=== PATIENT | female | born 1975 | race Hispanic/Latino ===

== ENCOUNTER 2017-05-26 18:35 | Emergency (ER) | payer OTHER, SELFPAY ==
[2017-05-26 18:36] VITALS: BMI 26.1
[2017-05-26 19:45] VITALS: BP 100/69; PULSE 98; RESP 18; TEMP 98.1; O2SAT 98
--- NOTE | 2017-05-26 20:29 | C.PDOC ---
History Of Present Illness 41 year old female presents to the ED for evaluation of right-sided neck pain which began 3 days ago. Patient reports the pain radiates down her right arm and is worse with movement. Patient states she is right hand dominant. She denies trauma/injuries and extremity numbness/weakness. Time Seen by Provider: 05/26/17 20:11 Chief Complaint (Nursing): Upper Extremity Problem/Injury History Per: Patient History/Exam Limitations: no limitations Onset/Duration Of Symptoms: Days (3) Current Symptoms Are (Timing): Still Present Quality: "Pain" Exacerbating Factor(s): Movement Additional History Per: Patient Past Medical History Reviewed: Historical Data, Nursing Documentation, Vital Signs Vital Signs: Last Vital Signs Temp 98.1 F 05/26/17 19:33 Pulse 98 H 05/26/17 19:33 Resp 18 05/26/17 19:33 BP 100/69 05/26/17 19:33 Pulse Ox 98 05/31/17 22:00 - Medical History PMH: Gall Bladder Disease, HTN, Hypercholesterolemia, Kidney Stones Surgical History: No Surg Hx Family History: States: Diabetes - Social History Hx Tobacco Use: No Hx Alcohol Use: No Hx Substance Use: No - Immunization History Hx Tetanus Toxoid Vaccination: No Hx Influenza Vaccination: No Hx Pneumococcal Vaccination: No Review Of Systems Musculoskeletal: Positive for: Neck Pain (right-sided), Arm Pain (right) Neurological: Negative for: Weakness, Numbness Physical Exam - Physical Exam Appears: Non-toxic, Other (uncomfortable ) Skin: Normal Color, Warm, Dry Head: Atraumatic, Normacephalic Eye(s): bilateral: Normal Inspection Oral Mucosa: Moist Neck: Supple Chest: Symmetrical, No Deformity, No Tenderness Cardiovascular: Rhythm Regular, No Murmur Respiratory: Normal Breath Sounds, No Rales, No Rhonchi, No Wheezing Back: Muscle Spasm (right-sided, trapezius ) Extremity: Normal ROM, No Tenderness, Capillary Refill (less than 2 seconds ), No Deformity, No Swelling Neurological/Psych: Oriented x3, Normal Speech, Normal Cognition, Normal Sensation Gait: Steady ED Course And Treatment O2 Sat by Pulse Oximetry: 98 (on RA) Pulse Ox Interpretation: Normal Progress Note: Cervical Spine XR ordered and reviewed. Flexeril PO and Toradol IM administered. Case discussed with Dr. Romero, who evaluated the patient at bedside. Agrees with plan and discharge. On reassessment, patient is resting comfortably, with improvement of neck pain. Patient remains afebrile, with no bony tenderness, extremity numbness or weakness, or abdominal pain. Patient is ambulatory in the emergency department with no signs of discomfort. Patient was advised to follow up with physician/clinic in 1-2 days. Disposition - Disposition Disposition: HOME/ ROUTINE Disposition Time: 21:39 Condition: STABLE Additional Instructions: Vaya a cope mdico o la clnica en 2-5 p[place]man sin falta, para mas evaluacin. [place] los medicamentos juany indicado. Volver a la tevin de emergencia en cualquier momento si los sntomas persisten o empeoran. 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 - Scribe Statement The provider has reviewed the documentation as recorded by the Scribe (Kitty Dozier) All medical record entries made by the Scribe were at my direction and personally dictated by me. I have reviewed the chart and agree that the record accurately reflects my personal performance of the history, physical exam, medical decision making, and the department course for this patient. I have also personally directed, reviewed, and agree with the discharge instructions and disposition.
--- NOTE | 2017-05-27 10:02 | RAD ---
PROCEDURE: Cervical Spine Radiographs. HISTORY: Pain. COMPARISON: None. FINDINGS: BONES: Cervical lordotic straightening. No fracture. Dens Intact. Tear spondylosis C4 and C5. DISC SPACES: Normal. SOFT TISSUES: Anterior C5-6 S disc margin calcification/ossification OTHER FINDINGS: None. IMPRESSION: No fracture or subluxation. No lytic lesion Cervical spondylosis Cervical lordotic straightening
== END 2017-05-26 22:14 | disposition home or self-care (01) ==
LOC: C.ER 18:35
DX: M54.12 Radiculopathy, cervical region (principal)
CPT/HCPCS: 72052; 96372; 99284; J1885

== ENCOUNTER 2017-12-02 01:09 | Emergency (ER) | payer SELFPAY ==
[2017-12-02 01:10] VITALS: BMI 26.1
[2017-12-02 01:28] VITALS: PULSE 76; TEMP 98
--- NOTE | 2017-12-02 02:02 | C.PDOC ---
History Of Present Illness 42 y/o F p/w R sided neck pain that radiates up R sided head and down R shoulder and arm and with R hand numbness. She also reports chest pain during this same time. Pain has been for the last 2 weeks, patient states she has had it before as well and was instructed to go to physical therapy but she never has because she does not have insurance. Denies fever, chills, dyspnea, nausea, vomiting, trauma. Time Seen by Provider: 12/02/17 01:32 Chief Complaint (Nursing): Chest Pain Past Medical History Vital Signs: Last Vital Signs Temp 98.0 F 12/02/17 01:18 Pulse 76 12/02/17 01:18 Resp 14 12/02/17 01:18 BP 123/61 12/02/17 01:18 Pulse Ox 98 12/02/17 01:18 - Medical History PMH: Gall Bladder Disease, HTN, Hypercholesterolemia, Kidney Stones Family History: States: Diabetes - Social History Hx Tobacco Use: No Hx Alcohol Use: No Hx Substance Use: No - Immunization History Hx Tetanus Toxoid Vaccination: No Hx Influenza Vaccination: No Hx Pneumococcal Vaccination: No Review Of Systems Except As Marked, All Systems Reviewed And Found Negative. Constitutional: Negative for: Fever Respiratory: Negative for: Shortness of Breath Physical Exam - Physical Exam Additional Physical Exam Comments: Constitutional: No acute distress. Head: Normocephalic. Atraumatic. Eyes: PERRL. ENT: Moist mucous membranes. Neck: Supple. No midline tenderness. FROM. Cardiovascular: Regular rate. Radial pulse 2+ bilaterally. Chest: Reproducible tenderness. Respiratory: Clear to auscultation bilaterally. GI: Soft. Nontender. Nondistended. Back: No CVA tenderness. Musculoskeletal: No tenderness or swelling of extremities. FROM of shoulder, elbow, and wrist. Skin: No rash. Neurologic: Alert, no focal deficit. ED Course And Treatment O2 Sat by Pulse Oximetry: 98 Medical Decision Making Medical Decision Making: Toradol for pain, muscle relaxants at bedtime. Physical therapy. F/u primary care. Troponin negative. Disposition - Disposition Disposition: HOME/ ROUTINE Disposition Time: 02:03 Condition: STABLE Prescriptions: Methocarbamol [Robaxin-750] 1 tab PO Q8H #12 tablet Instructions: Radiculopathy (DC) Print Language: ICELANDIC - Clinical Impression Clinical Impression: Cervical radicular pain
[2017-12-02 02:57] VITALS: BP 108/72; RESP 16; O2SAT 100
--- NOTE | 2017-12-03 19:32 | CARD ---
APPROVED REPORT Date of service: 12/02/2017 EKG Measurement Heart [id number] <Conclusion> Normal sinus rhythm Moderate voltage criteria for LVH, may be normal variant Borderline ECG
== END 2017-12-02 02:58 | disposition home or self-care (01) ==
LOC: C.ER 01:09
DX: M54.12 Radiculopathy, cervical region (principal); I10 Essential (primary) hypertension; E78.00 Pure hypercholesterolemia, unspecified
CPT/HCPCS: 82948; 84484; 93005; 96374; 99285; J1885

== ENCOUNTER 2018-08-21 09:18 | Emergency (ER) | payer OTHER ==
[2018-08-21] MEDS ORDERED: Sodium Chloride 0.9% 1,000 ML IV ONE ×3 (09:31→10:55)
[2018-08-21 09:46] VITALS: BMI 27.4
--- NOTE | 2018-08-21 09:57 | C.PDOC ---
History Of Present Illness 42 year old female presents to ED with complaint of upper abdominal pain with multiple episodes of nausea and vomiting since last night. She reports that it began "sometime last night." Patient denies chest pain, SOB, fever, and diar susan. Time Seen by Provider: 08/21/18 09:19 Chief Complaint (Nursing): Abdominal Pain History Per: Patient History/Exam Limitations: no limitations Onset/Duration Of Symptoms: Hrs (8) Current Symptoms Are (Timing): Still Present Location Of Pain/Discomfort: RUQ, LUQ Radiation Of Pain To:: None Quality Of Discomfort: "Pain" Associated Symptoms: Nausea, Vomiting. denies: Fever, Chills, Diarrhea Exacerbating Factors: None Past Medical History Reviewed: Historical Data, Nursing Documentation, Vital Signs Vital Signs: Last Vital Signs Temp 97.8 F 08/21/18 09:28 Pulse 108 H 08/21/18 09:28 Resp 20 08/21/18 09:28 BP 147/94 H 08/21/18 09:28 Pulse Ox 95 08/21/18 09:28 Primary Care Provider: Non [facility] Provider, - Medical History PMH: Gall Bladder Disease, HTN, Hypercholesterolemia, Kidney Stones Surgical History: No Surg Hx Family History: States: Unknown Family Hx, Diabetes - Social History Hx Tobacco Use: No Hx Alcohol Use: No Hx Substance Use: No - Immunization History Hx Tetanus Toxoid Vaccination: No Hx Influenza Vaccination: No Hx Pneumococcal Vaccination: No Review Of Systems Constitutional: Negative for: Fever, Chills Cardiovascular: Negative for: Chest Pain Respiratory: Negative for: Shortness of Breath Gastrointestinal: Positive for: Nausea, Vomiting, Abdominal Pain (upper abdom en). Negative for: Diarrhea, Constipation, Hematochezia, Hematemesis Physical Exam - Physical Exam Appears: Non-toxic, Other (uncomfortable, actively vomiting) Skin: Normal Color, Warm, Dry Head: Atraumatic, Normacephalic Neck: Normal ROM, Supple Chest: Symmetrical, No Deformity Cardiovascular: Rhythm Regular, Other (tachycardic) Respiratory: No Accessory Muscle Use, No Rales, No Rhonchi, No Wheezing Gastrointestinal/Abdominal: Soft, Tenderness (epigastric area), No Guarding, No Rebound, No Other (Diaz' sign, McBurney's point tenderness) Extremity: Capillary Refill (<2 seconds) Extremity: Bilateral: Atraumatic, Normal Color And Temperature, Normal ROM Pulses: Left Radial: Normal, Right Radial: Normal Neurological/Psych: Oriented x3, Normal Speech, Normal Cognition ED Course And Treatment - Laboratory Results Result Diagrams: 08/21/18 12:52 08/21/18 12:52 ECG: Interpreted By Me, Viewed By Me ECG Rhythm: Sinus Tachycardia ECG Interpretation: No Acute Changes Interpretation Of ECG: Left [place] deviation. No acute ST/T wave changes. Rate From EC O2 Sat by Pulse Oximetry: 95 (in RA) Pulse Ox Interpretation: Normal Progress Note: VBG and EKG ordered for patient. Labs ordered with CMP, lipase, CBC, and UA. Patient given Pepcid IVP, Zofran IVP, and IV fluids. Disposition Counseled Patient/Family Regarding: Studies Performed, Diagnosis, Need For Followup, Rx Given - Disposition Referrals: [facility] [Outside] Disposition: HOME/ ROUTINE Disposition Time: 13:45 Condition: STABLE Additional Instructions: FOLLOW UP WITH YOUR DOCTOR IN 1-2 DAYS USE YOUR METFORMIN EVERY DAY RETURN TO EMERGENCY ROOM IF YOUR SYMPTOMS BECOME WORSE SEGUIR CON ARREOLA MDICO EN 1-2 SEGUIR CON ARREOLA MDICO EN 1-2 SHANKAR UTILIZA TU METFORMINA TODOS LOS SHANKAR VUELVA A LA PACHECO DE EMERGENCIA SI JENNIFER SNTOMAS SE HACEN PEOR Prescriptions: metFORMIN [glucOPHAGE] 500 mg PO DAILY #30 tab Instructions: Hyperglycemia, Adult (DC) Forms: [employer] (Romanian) Print Language: SERBIAN - Clinical Impression Clinical Impression: Hyperglycemia - Scribe Statement The provider has reviewed the documentation as recorded by the Scribe (Rossi Andujar) All medical record entries made by the Scribe were at my direction and personally dictated by me. I have reviewed the chart and agree that the record accurately reflects my personal performance of the history, physical exam, medical decision making, and the department course for this patient. I have also personally directed, reviewed, and agree with the discharge instructions and disposition.
[2018-08-21 10:02] LABS: BASO # 0.1 K/uL (0.0-0.2); BASO % 0.9 % (0.0-2.0); EOS % 0.3 % (0.0-4.0); HEMOGLOBIN 15.9 g/dL (11.0-16.0); LYMPH # 2.2 K/uL (1.0-4.3); LYMPH % 15.1 % (20.0-40.0); MEAN CELL VOLUME 84.6 fL (81.0-99.0); MEAN CORPUSCULAR HEMOGLOBIN 29.5 pg (27.0-31.0); MEAN CORPUSCULAR HGB CONC 34.9 g/dL (33.0-37.0); MEAN PLATELET VOLUME 9.5 fL (7.2-11.7); MONO # 0.6 K/uL (0.0-0.8); MONO % 3.8 % (0.0-10.0); NEUT # 11.6 K/uL (1.8-7.0); NEUT % 79.9 % (50.0-75.0); RBC 5.4 Mil/uL (3.80-5.20); WHITE BLOOD COUNT 14.5 K/uL (4.8-10.8)
[2018-08-21 10:08] LABS: SQUAMOUS EPITHIAL 1 /hpf (0-5); URINE BILIRUBIN NEGATIVE (NEGATIVE); URINE BLOOD 1+ (NEGATIVE); URINE CLARITY Clear (Clear); URINE COLOR Straw (YELLOW); URINE GLUCOSE (UA) 3+ mg/dL (Normal); URINE LEUKOCYTE ESTERASE NEG Leu/uL (Negative); URINE PROTEIN 1+ mg/dL (NEGATIVE); URINE UROBILINOGEN NORMAL mg/dL (0.2-1.0)
[2018-08-21 10:10] LABS: VENOUS BLOOD GAS BASE EXCESS -3.9 mmol/L (0.0-2.0); VENOUS BLOOD GAS PCO2 36 mmHg (40-60); VENOUS BLOOD GAS PO2 60 mm/Hg (30-55); VENOUS BLOOD PH 7.37 (7.32-7.43)
[2018-08-21 10:10] LABS: HCG,QUALITATIVE URINE NEGATIVE (NEGATIVE)
[2018-08-21 10:34] LABS: BLOOD UREA NITROGEN 11 mg/dL (7-17); CALCIUM 9.5 mg/dl (8.6-10.4); GFR NON-AFRICAN AMERICAN > 60; LIPASE 64 U/L (23-300)
[2018-08-21 10:36] LABS: ALBUMIN 4.9 g/dL (3.5-5.0)
[2018-08-21 10:37] LABS: ALB/GLOB RATIO 1.7 (1.0-2.1)
[2018-08-21] MEDS ORDERED: (Novolin R) Insulin Human Regular 100 units/ml vial IVP ONE (10:37)
[2018-08-21 10:38] LABS: ALT/SGPT 40 U/L (9-52); AST/SGOT 34 U/L (14-36)
[2018-08-21] MEDS ORDERED: Sodium Chloride 0.9% 1,000 ML ONE ×2 (11:07→11:54)
[2018-08-21] MEDS ORDERED: (Novolin R) Insulin Human Regular 100 units/ml vial ONE (11:08)
[2018-08-21 11:09] VITALS: RESP 18
[2018-08-21 12:55] LABS: VENOUS BLOOD GAS BASE EXCESS -3.1 mmol/L (0.0-2.0); VENOUS BLOOD GAS PCO2 45 mmHg (40-60); VENOUS BLOOD GAS PO2 44 mm/Hg (30-55); VENOUS BLOOD PH 7.32 (7.32-7.43)
[2018-08-21 13:09] LABS: BASO # 0.1 K/uL (0.0-0.2); BASO % 0.4 % (0.0-2.0); LYMPH # 1.6 K/uL (1.0-4.3); LYMPH % 10.3 % (20.0-40.0); MEAN CELL VOLUME 84.7 fL (81.0-99.0); MEAN CORPUSCULAR HEMOGLOBIN 28.8 pg (27.0-31.0); MEAN PLATELET VOLUME 9.6 fL (7.2-11.7); MONO # 0.8 K/uL (0.0-0.8); MONO % 5.1 % (0.0-10.0); NEUT # 13.2 K/uL (1.8-7.0); NEUT % 84.2 % (50.0-75.0); RBC 4.82 Mil/uL (3.80-5.20); RED CELL DISTRIBUTION WIDTH 13.1 % (11.5-14.5); WHITE BLOOD COUNT 15.6 K/uL (4.8-10.8)
[2018-08-21 13:11] LABS: HEMOGLOBIN 13.9 g/dL (11.0-16.0)
[2018-08-21 13:17] LABS: ALB/GLOB RATIO 1.3 (1.0-2.1); ALBUMIN 3.8 g/dL (3.5-5.0); ALT/SGPT 36 U/L (9-52); AST/SGOT 27 U/L (14-36); BLOOD UREA NITROGEN 9 mg/dL (7-17); CALCIUM 8.2 mg/dl (8.6-10.4); GFR NON-AFRICAN AMERICAN > 60
[2018-08-21 13:20] VITALS: BP 116/71; PULSE 90; TEMP 97.9
[2018-08-21 13:41] VITALS: O2SAT 95
--- NOTE | 2018-08-22 15:15 | CARD ---
APPROVED REPORT Date of service: 08/21/2018 EKG Measurement Heart [id number] <Conclusion> Sinus tachycardia Otherwise normal ECG
== END 2018-08-21 13:54 | disposition home or self-care (01) ==
LOC: C.ER 09:18
DX: R73.9 Hyperglycemia, unspecified (principal); I10 Essential (primary) hypertension; E78.00 Pure hypercholesterolemia, unspecified
CPT/HCPCS: 80053; 81001; 82009; 82803; 82948; 83690; 83930; 84703; 85025; 93005; 96361; 96374; 96375; 99285; J2405; J7030